=== PATIENT | male | born 1955 | race Hispanic/Latino ===

== ENCOUNTER 2018-02-24 13:07 | Emergency (ER) | payer OTHER ==
[2018-02-24 13:15] VITALS: BP 168/104
[2018-02-24] MEDS ORDERED: BOOSTRIX IM ONE (13:17)
--- NOTE | 2018-02-24 13:20 | Emergency Department Report ---
HPI - General Chief Complaint: Puncture Wound Time Seen by Provider: 02/24/18 13:16 - HPI HPI: 62-year-old male presents to the emergency department from home with complaint of a laceration to the left middle abdomen that occurred from a table saw just prior to presentation. This chop saw moves up and down, as well as forwards and backwards, and the patient says that it jumped up on him when he pulled the "trigger" to turn on the saw. He has a past medical history of hypertension. He did not take anything for his symptoms prior to presentation. He says that he last had a tetanus shot somewhere around 5 years ago. ED Past Medical Hx - Past Medical History Hx Hypertension: No Hx GERD: Yes Hx Renal Disease: No (Renal stones) Hx Kidney Stones: Yes Hx HIV: No - Surgical History Additional Surgical History: KNEE REPLACEMENT - Social History Smoking Status: Never Smoker Substance Use Type: None - Medications Home Medications: Home Medications Medication Instructions Recorded Confirmed Last Taken Type Ascorbic Acid [Vitamin C] 1,000 mg PO DAILY 06/01/15 06/09/15 05/27/15 09:00 History Sulfamethoxazole/Trimethoprim 1 each PO BID #10 tablet 02/24/18 Unknown Rx [Bactrim DS TAB] ED Review of Systems ROS: Stated complaint: PUNCTURE ON (L) SIDE OF ABD Other details as noted in HPI Comment: All other systems reviewed and negative Constitutional: denies: chills, fever Eyes: denies: eye pain, eye discharge, vision change ENT: denies: ear pain, throat pain Respiratory: denies: cough, shortness of breath, wheezing Cardiovascular: denies: chest pain, palpitations Gastrointestinal: abdominal pain. denies: vomiting Genitourinary: denies: urgency, dysuria Musculoskeletal: denies: back pain, arthralgia Skin: other (laceration). denies: rash Neurological: denies: headache, weakness, paresthesias Physical Exam - Physical Exam Vital Signs: Vital Signs 02/24/18 13:13 Temperature 98.4 F Pulse Rate 95 H Respiratory 19 Rate Blood Pressure 168/104 O2 Sat by Pulse 98 Oximetry Physical Exam: GENERAL: The patient is well-developed well-nourished. HENT: Normocephalic. Atraumatic. Patient has moist mucous membranes. EYES: Extraocular motions are intact. NECK: Supple. Trachea is midline. CHEST/LUNGS: Clear to auscultation. There is no respiratory distress noted. HEART/CARDIOVASCULAR: Regular. There is no tachycardia. There is no murmur. ABDOMEN: Abdomen is soft. Patient has normal bowel sounds. Obese habitus. SKIN: There is a laceration to the left middle abdominal wall that is about 5 inches in length. There is about a 1.5 inch gap. The laceration goes down into the adipose tissue. The edges are sharp. No current bleeding. No foreign body seen. NEURO: The patient is awake, alert, and oriented. The patient is cooperative. The patient has no focal neurologic deficits. The patient has normal speech. MUSCULOSKELETAL: There is no tenderness or deformity. There is no limitation range of motion. There is no evidence of acute injury. Body Four View: 1 - Laceration - 5 inches into adipose ED Course Vital Signs 02/24/18 13:13 Temperature 98.4 F Pulse Rate 95 H Respiratory 19 Rate Blood Pressure 168/104 O2 Sat by Pulse 98 Oximetry - Laceration /Wound Repair Abdomen Wound Location: abdomen Wound Length (cm): 12 Wound's Depth, Shape: superficial (into adipose tissue), linear (with a 1.5 inch gap) Wound Explored: clean Irrigated w/ Saline (ccs): 150 Anesthesia: 1% Lidocaine Volume Anesthetic (ccs): 16 Wound Repaired With: sutures Suture Size/Type: 3:0, proline Number of Sutures: 14 (11 simple interrupted, 3 horizontal mattress) Layer Closure?: Yes Deep Layer Suture Size/Type: 3:0 (Vicryl, subcuticular stiches) Number Deep Layer Sutures: 3 Sterile Dressing Applied?: Yes Progress: 3 subcuticular Vicryl horizontal mattress sutures were placed. Then 3 Prolene horizontal mattress sutures were placed. Initially followed by 11 simple interrupted Prolene sutures. No obvious complications. Total blood loss of about 10 mL. ED Medical Decision Making - Radiology Data Radiology results: image reviewed interpreted by me: Abdominal x-ray did not show any acute process. There is a radiopaque kidney stone seen. - Medical Decision Making Patient presents with a left abdominal wall laceration from a table saw. It goes down to the adipose tissue. The area was cleaned with about 150 mL of sterile saline. It was locally anesthetized with 1% lidocaine without epinephrine. After appropriate anesthesia, the area was evaluated and it does not appear to go any deeper than the adipose tissue. I placed a few subcuticular horizontal mattress sutures with absorbable Vicryl suture. Then I placed a few horizontal superficial nonabsorbable sutures followed by 11 simple interrupted stitches. The area was well approximated. The patient tolerated the procedure well. He was given IV antibiotics here and will be sent home on oral antibiotics. He will follow-up with his primary care physician for a wound check and we discussed signs and symptoms for infection for which he needs to return immediately. Critical Care Time: No Critical care attestation.: If time is entered above; I have spent that time in minutes in the direct care of this critically ill patient, excluding procedure time. ED Disposition Clinical Impression: Laceration of abdominal wall Qualifiers: Encounter type: initial encounter Qualified Code(s): S31.119A - Laceration without foreign body of abdominal wall, unspecified quadrant without penetration into peritoneal cavity, initial encounter Hypertension Qualifiers: Hypertension type: essential hypertension Qualified Code(s): I10 - Essential ( primary) hypertension Disposition: TO HOME OR SELFCARE Is pt being admited?: No Condition: Stable Instructions: Suture Care (ED), Laceration (ED), Acute Wound Care (ED), Hypertension (ED) Additional Instructions: Please take the antibiotics as prescribed. I recommend that he follow up with your primary care physician in a few days for a wound care check. The sutures will need to be removed in 10 days and this can be done at a primary care office , urgent care, or in the emergency department. He is return to the emergency department immediately with any intractable bleeding, signs or symptoms of infection such as surrounding redness or discharge of pus, development of fever , or with any acute distress. Prescriptions: Sulfamethoxazole/Trimethoprim [Bactrim DS TAB] 1 each PO BID #10 tablet Referrals: PRIMARY CARE [Primary Care Provider] - 3-5 Days Time of Disposition: 16:14
[2018-02-24] MEDS ORDERED: XYLOCAINE 1% 20 mL INFILTRATI ONE (13:23)
[2018-02-24] MEDS ORDERED: VANCOMYCIN/NS 1 GM/250 ML 1 GM/250 ML BAG IV SCH (14:00)
[2018-02-24] MEDS ORDERED: NACL 0.9% 500 ML IR ONE (14:14)
--- NOTE | 2018-02-24 14:24 | XRay Report ---
ABDOMEN, 2 views: History: Abdominal pain. There is no evidence of free air beneath the diaphragms. The gas pattern within the abdomen is unremarkable. There is no evidence of bowel dilatation, or significant air-fluid levels. A 1.8 cm calcification overlies the inferior pole of the left kidney which probably represents a renal stone IMPRESSION: Left nephrolithiasis.
== END 2018-02-24 16:49 | disposition home or self-care (01) ==
LOC: ED 13:07
DX: S31.119A Laceration without foreign body of abdominal wall, unspecified quadrant without penetration into peritoneal cavity, initial encounter (principal); I10 Essential (primary) hypertension; K21.9 Gastro-esophageal reflux disease without esophagitis; W27.8XXA Contact with other nonpowered hand tool, initial encounter; Y93.89 Activity, other specified; Y92.89 Other specified places as the place of occurrence of the external cause; Y99.8 Other external cause status
CPT/HCPCS: 12034; 74019; 90471; 90715; 96365; 99283; J3370